=== PATIENT | male | born 2000 | race Caucasian/White ===

== ENCOUNTER 2021-05-14 13:48 | Emergency (ER) | payer OTHER ==
[~2021-05-14] VITALS: Ht 170.2 cm; Wt 100.0 kg
[2021-05-14 14:20] VITALS: BP 137/67
--- NOTE | 2021-05-14 14:28 | PHYS DOC ---
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 Reports first noticing pain to lateral portion of ankle approximately 2 days ago without any trauma or known mechanism of injury. Nothi ng known makes better, weightbearing makes worse. Ongoing issues brought him in today for evaluation. Has no changes in motor or sensory or neuro function, states he knows nothing is broken but is unclear why it is hurting Review of Systems Review of Systems Fourteen body systems of review of systems have been reviewed. See HPI for pertinent positives and negative responses, other boss all other systems are negative, non-pertinent or non-contributory Allergies Allergies Allergies Coded Allergies Type Severity Reaction Last Updated Verified No Known Drug Allergies 05/14/21 No Physical Exam Physical Exam Constitutional: Well developed, well nourished, no acute distress, non-toxic appearance. HENT: Normocephalic, atraumatic, bilateral external ears normal, oropharynx moist, no oral exudates, nose normal. Eyes: PERRLA, EOMI, conjunctiva normal, no discharge. Neck: Normal range of motion, no tenderness, supple, no stridor. Cardiovascular: Heart rate regular per monitor Lungs & Thorax: No respiratory distress or accessory muscle use, bilateral chest rise Abdomen: Abdomen soft, non-tender, bowel sounds present in all quadrants, no guarding or rebound, nonacute abdomen. Skin: Warm, dry, no erythema, no rash. Back: No tenderness, no CVA tenderness. Extremities: Tenderness present over left lateral portion of ankle overlying ATF ligament otherwise unremarkable evaluation formally of left knee, no palpable pain or abnormalities to left fibular head, unremarkable soft tissue compartments of left lower extremity, negative [place] left ankle and foot rules. No cyanosis, no clubbing, ROM intact, no edema. Neurologic: Alert and oriented X 3, grossly normal motor & sensory function, no focal deficits noted. Psychologic: Affect normal, judgement normal, mood normal. Current Patient Data Vital Signs Vital Signs Date Time Temp Pulse Resp B/P (MAP) Pulse Ox O2 Delivery O2 Flow Rate FiO2 05/14/21 14:20 98.0 65 16 137/67 (90) 100 Room Air EKG EKG [] Radiology/Procedures Radiology/Procedures [] Heart Score C/O Chest Pain: No Risk Factors: Risk Factors: DM, Current or recent (<one month) smoker, HTN, HLP, family history of CAD, obesity. Risk Scores: Risk Factors: DM, Current or recent (<one month) smoker, HTN, HLP, family history of CAD, obesity. Course & Med Decision Making Course & Med Decision Making ABCs unremarkable HPI and physical exam nonconcerning for any emergent or surgical issues 2 days of pain with unknown injury, negative [place] ankle and foot rule. Disclose little indication for further diagnostic work-up in ER setting. Most likely ankle sprain versus other self-limiting musculoskeletal illness. Supportive care practices advised Sanket Disclaimer [employer] Disclaimer This electronic medical record was generated, in whole or in part, using a voice recognition dictation system. Departure Departure: Impression: Primary Impression: Left lateral ankle pain Disposition: HOME / SELF CARE / HOMELESS Condition: STABLE Referrals: PCP,NO (PCP) Patient Instructions: Ankle Pain Additional Instructions: It is likely that you have experienced a sprain/strain to an associated ligament/tendon within the joint that is causing you pain. The best treatment for this injury is continued range of motion to prevent a frozen joint. A Rest, Ice, Compression, Elevation (RICE) strategy may also be helpful in the acute phase. Please utilize ice in addition to Tylenol and ibuprofen for pain control. Please follow up with your primary doctor. Please return to the ED if new or worrisome symptoms arise. PARISA GARCIA DO May 14, 2021 14:28
== END 2021-05-14 14:32 | disposition home or self-care (01) ==
LOC: ER 13:48
DX: M25.572 Pain in left ankle and joints of left foot (principal)
CPT/HCPCS: 99282